=== PATIENT | male | born 1935 | race American Indian/Alaskan Native ===

== ENCOUNTER 2018-02-27 11:52 | Emergency (ER) | payer MEDICARE, OTHER ==
[2018-02-27 12:37] LABS: Basophils % (Auto) 0.6 % (0.0-1.8); Eosinophils # (Auto) 0.4 K/mm3 (0.0-0.4); Eosinophils % (Auto) 4.8 % (0.0-4.3); Hematocrit 45.2 % (35.5-45.6); Hemoglobin 15.3 gm/dl (11.8-15.2); Lymphocytes # (Auto) 1.5 K/mm3 (1.2-5.4); Lymphocytes % (Auto) 18.8 % (13.4-35.0); Mean Corpuscular HGB Conc 34 % (32-34); Mean Corpuscular Hemoglobin 30 pg (28-32); Mean Corpuscular Volume 90 fl (84-94); Monocytes # (Auto) 0.7 K/mm3 (0.0-0.8); Monocytes % (Auto) 9.1 % (0.0-7.3); Platelet Count 234 K/mm3 (140-440); Red Blood Count 5.05 M/mm3 (3.65-5.03); Red Cell Distribution Width 14.6 % (13.2-15.2)
[2018-02-27 13:00] LABS: Alanine Aminotransferase 12 units/L (7-56); Albumin 3.8 g/dL (3.9-5); BUN/Creatinine Ratio 19; Blood Urea Nitrogen 15 mg/dL (9-20); Calcium 10.6 mg/dL (8.4-10.2); Hemolysis Index 72
--- NOTE | 2018-02-27 13:01 | XRay Report ---
AP CHEST: HISTORY: Lightheadedness dizziness A large hiatal hernia is suspected posterior to the heart. The remainder of the mediastinum is within normal limits. The lungs are clear. No pleural effusion or pneumothorax. The bony structures are intact. IMPRESSION: Large hiatal hernia.
[2018-02-27] MEDS ORDERED: NACL 0.9% 1000 ML 1,000 ML IV ONE (13:05)
--- NOTE | 2018-02-27 13:11 | Emergency Department Report ---
- General Chief complaint: Hyperglycemia Stated complaint: HYPERGLYCEMIC Time Seen by Provider: 02/27/18 12:32 Source: family, EMS Mode of arrival: Stretcher Limitations: No Limitations - History of Present Illness Initial comments: 82-year-old male with history of dementia presents with hyperglycemia and altered mental status x 2 days. Caregiver states patient's glucose has been elevated since yesterday and that he seems to be shaking. Reports it was in the upper 200s and reached a high of 349 this morning. Caregiver states patient has been sleeping more than usual, however when he is awake he is his normal self. He also has had decreased by mouth intake as well. Caregiver denies that patient has had a fever. States he has had no complaints. - Related Data Previous Rx's Medication Instructions Recorded Last Taken Type Ciprofloxacin HCl [Ciprofloxacin 500 mg PO Q12HR #14 tab 02/27/18 Unknown Rx TAB] Allergies Allergy/AdvReac Type Severity Reaction Status Date / Time pravastatin AdvReac Unknown Verified 06/15/15 17:06 prazosin AdvReac Unknown Verified 06/15/15 17:06 simvastatin AdvReac Unknown Verified 06/15/15 17:06 terazosin AdvReac Unknown Verified 06/15/15 17:06 ED Review of Systems ROS: Stated complaint: HYPERGLYCEMIC Other details as noted in HPI Comment: Unobtainable due to pts medical conditions (pt has hx of dementia) Constitutional: other (decreased PO intake). denies: fever Neurological: other (family reports tremor) ED Past Medical Hx - Past Medical History Hx Hypertension: Yes Hx Diabetes: Yes Hx Kidney Stones: Yes Additional medical history: alzheimers. prostate CA - Social History Smoking Status: Never Smoker Substance Use Type: None - Medications Home Medications: Home Medications Medication Instructions Recorded Confirmed Last Taken Type Ciprofloxacin HCl [Ciprofloxacin 500 mg PO Q12HR #14 tab 02/27/18 Unknown Rx TAB] ED Physical Exam - General Limitations: No Limitations, Altered Mental Status (dementia) General appearance: alert, in no apparent distress - Head Head exam: Present: atraumatic, normocephalic - Eye Eye exam: Present: normal appearance - ENT ENT exam: Present: mucous membranes moist - Neck Neck exam: Present: normal inspection - Respiratory Respiratory exam: Present: normal lung sounds bilaterally. Absent: respiratory distress - Cardiovascular Cardiovascular Exam: Present: normal rhythm, tachycardia - GI/Abdominal GI/Abdominal exam: Present: soft. Absent: distended, tenderness - Extremities Exam Extremities exam: Present: normal inspection - Neurological Exam Neurological exam: Present: alert, other (at baseline per family; no tremor noted on exam) - Psychiatric Psychiatric exam: Present: normal affect, normal mood - Skin Skin exam: Present: warm, dry, intact, normal color ED Course Vital Signs 02/27/18 02/27/18 02/27/18 11:59 12:06 12:08 Temperature 98.1 F Pulse Rate 111 H Blood Pressure 125/94 125/94 125/94 O2 Sat by Pulse 100 98 Oximetry 02/27/18 02/27/18 02/27/18 12:16 12:30 12:46 Temperature Pulse Rate Blood Pressure 125/94 140/98 125/94 O2 Sat by Pulse 94 95 Oximetry 02/27/18 02/27/18 02/27/18 13:00 13:16 13:31 Temperature Pulse Rate Blood Pressure 140/95 140/98 134/94 O2 Sat by Pulse 95 94 Oximetry 02/27/18 02/27/18 02/27/18 13:45 14:00 14:16 Temperature Pulse Rate Blood Pressure 143/86 141/84 141/84 O2 Sat by Pulse 94 93 94 Oximetry ED Medical Decision Making - Lab Data Result diagrams: 02/27/18 12:25 02/27/18 12:25 - Radiology Data Radiology results: report reviewed, image reviewed CXR: neg acute CT Head: neg acute - Medical Decision Making 82-year-old male brought into the emergency room by daughter and caregiver for hyperglycemia. Also states patient has been sleeping more often and eating less the last 2 days. Tremor reported by daughter however patient has no tremor on exam. CT head negative for any acute findings. Chest x-ray normal. UA shows UTI. 5 units subcutaneous insulin, IV fluids, and Levaquin given here in ED. Will give prescription for Cipro. Advised family to follow up with PCP. Return precautions given - Differential Diagnosis UTI, DKA, dehydration Critical care attestation.: If time is entered above; I have spent that time in minutes in the direct care of this critically ill patient, excluding procedure time. ED Disposition Clinical Impression: UTI (urinary tract infection) Disposition: DC-01 TO HOME OR SELFCARE Is pt being admited?: No Condition: Stable Instructions: Urinary Tract Infection in Men (ED) Prescriptions: Ciprofloxacin HCl [Ciprofloxacin TAB] 500 mg PO Q12HR #14 tab Referrals: PRIMARY CARE, [Primary Care Provider] - 3-5 Days Time of Disposition: 15:12
[2018-02-27 13:51] LABS: Bacteria,Urine 4+ /HPF (Negative); Bilirubin,Urine NEG (Negative); Blood,Urine LG (Negative); Color,Urine Yellow (Yellow); Mucus,Urine FEW /HPF
[2018-02-27] MEDS ORDERED: LEVAQUIN PO ONE (14:33)
[2018-02-27] MEDS ORDERED: LEVAQUIN 500MG/100ML 500 MG/100 ML BAG IV ONE (14:36)
--- NOTE | 2018-02-27 14:54 | Cat Scan Report ---
CT HEAD WITHOUT CONTRAST: HISTORY: Altered mental status. TECHNIQUE: Sequential CT images without contrast. FINDINGS: Non-contrast CT of the head is submitted demonstrating central and cortical atrophy. There are low density changes in the periventricular white matter. There is no intracranial hemorrhage or mass effect. There is no shift of the midline. Basilar cisterns are patent. The included portions of the paranasal sinuses and mastoid air cells are clear. IMPRESSION: Senescent changes as noted. No acute intracranial process.
[2018-02-27] MEDS ORDERED: HumuLIN R SUB-Q ONE (15:07)
[2018-02-27 16:39] VITALS: BP 143/86
== END 2018-02-27 19:09 | disposition home or self-care (01) ==
LOC: ED 11:52
DX: N39.0 Urinary tract infection, site not specified (principal); E11.65 Type 2 diabetes mellitus with hyperglycemia; I10 Essential (primary) hypertension; Z88.8 Allergy status to other drugs, medicaments and biological substances
CPT/HCPCS: 36415; 70450; 71045; 80053; 81001; 82962; 85025; 96365; 96372; 99285; J1956; J7030; J1815